=== PATIENT | female | born 1980 | race Two or more races ===

== ENCOUNTER → 2019-04-06 | Outpatient (CLI) | payer OTHER ==
[~2019-04-06] VITALS: Ht 162.6 cm; Wt 97.5 kg
[~2019-04-06] MED LIST: SINCALIDE 1.95 MCG in IV NORMAL SALINE 50ML 30 ML IV ONE
--- NOTE | 2019-04-06 13:19 | RAD ---
EXAM: Abdomen sonogram. HISTORY: Pain. TECHNIQUE: Sonographic imaging of the abdomen was performed. COMPARISON: None. FINDINGS: The liver is normal in size. No focal hepatic lesion is seen. There is cholelithiasis. There are no secondary findings to suggest cholecystitis. The common bile duct is normal in caliber. The right kidney and inferior vena cava are unremarkable. The pancreas is partially obscured due to bowel gas. IMPRESSION: 1. Cholelithiasis. 2. Partially obscured pancreas due to bowel gas. Electronically signed by: Jerri Castillo MD (04/06/2019 1:16 PM) [facility]
--- NOTE | 2019-04-06 14:27 | RAD ---
EXAM: Nuclear hepatobiliary scan. HISTORY: Right upper quadrant pain. TECHNIQUE: Following intravenous administration of 5.5 mCi Tc 99m Choletec, anterior images of the abdomen were obtained at five minute intervals through one hour. Subsequently, 1.95 mcg CCK was administered and additional images to assess gallbladder ejection fraction were obtained. FINDINGS: There is prompt radiotracer uptake by the liver. No focal defect is seen. There is normal excretion into the biliary tree. The gallbladder is visualized within 10 minutes and there is free flow into the duodenum. The gallbladder ejection fraction is 78%. IMPRESSION: High gallbladder ejection fraction of 78%. This can be seen with biliary hyperkinesia. Electronically signed by: Jerri Castillo MD (04/06/2019 2:24 PM) [facility]
== END | disposition home or self-care (01) ==
LOC: US 11:34
PROVIDERS: ATTEND Obstetrics & Gynecology
DX: K80.20 Calculus of gallbladder without cholecystitis without obstruction (principal); K80.80 Other cholelithiasis without obstruction; F90.9 Attention-deficit hyperactivity disorder, unspecified type
CPT/HCPCS: 76705; 78227; A9537; J2805

== ENCOUNTER → 2019-04-09 | Outpatient (CLI) | payer OTHER ==
[~2019-04-09] MED LIST changes: +HYDR-2765 PO; +IOHEXOL 240 MG/ML 50ML VIAL. PO ONE; +IOHEXOL 300 MG/ML 100ML VIAL. IV ONE; -SINCALIDE 1.95 MCG in IV NORMAL SALINE 50ML 30 ML IV ONE
--- NOTE | 2019-04-09 11:53 | RAD ---
Examination: CT ABDOMEN W/CONTRAST History: Right upper quadrant mass. Pain. Comparison/Correlation: None Findings: Axial images of the abdomen were obtained following IV contrast. Sagittal and coronal reformatted images were provided. Oral contrast was administered. Visualized lung bases are clear. Small sliding hiatal hernia is present. Liver, spleen, pancreas, and adrenal glands are normal. Gallbladder is unremarkable. There is no evidence of obstruction involving visualized bowel. No enlarged abdominal lymph nodes. Very minimal edema is noted superficial to the liver at the gallbladder fossa level. Edema superficial to the right upper abdominal wall muscular fascia is noted. Slightly dense collection which is ill-defined is suggested on axial images 43 through 39 measuring 4 cm transverse by 1.1 cm in longitudinal by 1.4 cm longitudinal. This is within the region of edema of the deep subcutaneous fat superficial to the muscular fascia. Edema between right ventricle and abdominal wall musculature is also seen. Suture material is noted anterior to the stomach. Bony structures are grossly unremarkable. Impression: Small sliding hiatal hernia. Involving the right upper quadrant and right flank abdominal wall. There is an intermediate density ill-defined structure which may represent hematoma, other complex collection, or possibly soft tissue mass at the right upper abdomen anteriorly within the deep subcutaneous fat. Minimal ascites superficial to the right hepatic lobe of the gallbladder fossa level is present. Correlate for underlying trauma or inflammatory process. PQRS Compliance Statement: One or more of the following individualized dose reduction techniques were utilized for this examination: 1. Automated exposure control 2. Adjustment of the mA and/or kV according to patient size 3. Use of iterative reconstruction technique Electronically signed by: Juan Armas MD (04/09/2019 11:50 AM) [facility]
== END | disposition home or self-care (01) ==
LOC: CT 09:22
PROVIDERS: ATTEND Specialist
DX: K44.9 Diaphragmatic hernia without obstruction or gangrene (principal); R19.01 Right upper quadrant abdominal swelling, mass and lump; K76.89 Other specified diseases of liver
CPT/HCPCS: 74160; Q9966; Q9967

== ENCOUNTER 2019-04-13 09:46 | Day surgery (SDC) | payer OTHER ==
[~2019-04-13] VITALS: Ht 162.6 cm; Wt 95.3 kg
[~2019-04-13 09:46] MED LIST changes: +BUPIVACAINE-EPI 0.25%-1:200000 MPF 30 ML VIAL. INJ ONE; +BUPIVACAINE-EPI 0.5%-1:200000 MPF 30 ML VIAL. INJ ONE; -HYDR-2765 PO; +HYDROmorphone 2 MG/ML VIAL IV PRN; -IOHEXOL 240 MG/ML 50ML VIAL. PO ONE; -IOHEXOL 300 MG/ML 100ML VIAL. IV ONE; +IV RINGERS,LACTATED 1000ML 1,000 ML IV SCH; +LIDOCAINE 1% PF 2 ML VIAL. ID PRN; +MORPHINE SULFATE 2 MG/ML VIAL. IV PRN; +ONDANSETRON PF 4 MG/2 ML VIAL. IV PRN; +PROCHLORPERAZINE 10 MG/2 ML VIAL. IV PRN; +fentaNYL PF VIAL 100 MCG/2 ML VIAL IV PRN
[2019-04-13] MEDS ORDERED: SCOPOLAMINE 1.5MG PATCH. TD ONE (10:15)
[2019-04-13 10:19] LABS: BILIRUBIN,URINE NEGATIVE (NEG); CLARITY,URINE CLEAR; COLOR,URINE YELLOW; NITRITE,URINE NEGATIVE (NEG); PH,URINE 5.5; PROTEIN,URINE NEGATIVE (NEG-TRACE); UROBILINOGEN,URINE 0.2 mg/dL (0.2 mg/dL)
--- NOTE | 2019-04-13 10:28 | HP ---
ADMIT DATE: 04/13/2019 HISTORY OF PRESENT ILLNESS: The patient comes to me with pain in the right upper quadrant for about 3-4 months. She also had a mass there, which has gone away now. She stated to have indigestion and other problems associated with eating and I do not know that she vomited, but was nauseated a lot. The main problem, however, was pain in her right upper quadrant and right abdomen. PAST MEDICAL HISTORY: Shows normal childhood diseases. She does not take medicine for any disease. ALLERGIES: Has no allergies. PAST SURGICAL HISTORY: She has had surgery and that she has had a laparoscopic banding in and also had it removed, and this was done laparoscopically. FAMILY HISTORY: Shows that she had a sister I think that had gallstones, but no other pertinent history of family disease. SOCIAL HISTORY: Shows that she does not smoke or use illicit drugs. She does have one son who is 2 years old and daughter 13. PHYSICAL EXAMINATION: GENERAL: Shows an alert female in no acute distress. HEAD, EARS, EYES, NOSE AND THROAT: Grossly normal. CHEST: Clear bilaterally to auscultation. HEART: Had no murmurs, heaves, friction rubs or thrills and also had regular rate of 70 beats per minute. ABDOMEN: Soft, no organomegaly was noted. There was no tenderness, rebound or guarding, but she did have an ill-defined mass appeared to be an abdominal wall in the right upper quadrant. I am not certain that this was gallbladder as it felt too superficial. PELVIS: The pelvic was not done. No other abnormalities were noted. EXTREMITIES: Unremarkable. IMPRESSION: Cholelithiasis per a recent sonogram and she also had a CT scan. PLAN: To do a cholecystectomy. She understands laparoscopic and if that cannot be done that we will do open. CARINA CARSON MD DR: LAN/janusz JOB#: [id number] / [id number] JOEL
[2019-04-13 10:36] LABS: BASO # 0.1 x10^3/uL (0.0-0.2); BASO % 1 % (0-3); EOS # 0.2 x10^3/uL (0.0-0.7); EOS % 3 % (0-3); HEMATOCRIT 36.4 % (36.0-47.0); HEMOGLOBIN 12.6 g/dL (12.0-15.5); LYMPH # 2.1 x10^3/uL (1.0-4.8); LYMPH % 25 % (24-48); MEAN CORPUSCULAR HEMOGLOBIN 28 pg (25-35); MEAN CORPUSCULAR HGB CONC 35 g/dL (31-37); MEAN CORPUSCULAR VOLUME 81 fL (79-100); MONO # 0.5 x10^3/uL (0.0-1.1); MONO % 5 % (0-9); NEUT # 5.6 x10^3/uL (1.8-7.7); NEUT % 66 % (31-73); PLATELET COUNT 281 x10^3/uL (140-400); RED BLOOD COUNT 4.53 x10^6/uL (3.50-5.40); RED CELL DISTRIBUTION WIDTH 14.2 % (11.5-14.5); WHITE BLOOD COUNT 8.5 x10^3/uL (4.0-11.0)
[2019-04-13 10:50] LABS: PROTHROMBIN TIME PATIENT 12.2 SEC (11.7-14.0)
[2019-04-13] MEDS ORDERED: ROCURONIUM 50 MG/5 ML VIAL. ONE ×2 (10:51→12:56)
[2019-04-13] MEDS ORDERED: LIDOCAINE 2% PF 5 ML VIAL. ONE (10:52)
[2019-04-13] MEDS ORDERED: ONDANSETRON PF 4 MG/2 ML VIAL. ONE ×2 (10:52→15:49)
[2019-04-13] MEDS ORDERED: PROPOFOL 20 ML IV ONE ×2 (10:52→15:13)
[2019-04-13] MEDS ORDERED: fentaNYL PF VIAL 100 MCG/2 ML VIAL ONE ×2 (10:52→12:56)
[2019-04-13] MEDS ORDERED: MIDAZOLAM HCL/PF 2 MG/2 ML VIAL. ONE (10:52)
[2019-04-13] MEDS ORDERED: DEXAMETHASONE SOD PHOS 4 MG/ML VIAL ONE (10:52)
[2019-04-13] MEDS ORDERED: GLYCOPYRROLATE 1 MG/5 ML VIAL. ONE (10:52)
[2019-04-13] MEDS ORDERED: KETOROLAC 30 MG/ML VIAL. ONE (10:52)
[2019-04-13] MEDS ORDERED: NEOSTIGMINE METHYLSULFATE 5 MG/5 ML SYRINGE. ONE (10:52)
[2019-04-13 11:07] LABS: SQUAMOUS EPITHELIAL CELL,UR MANY /LPF
[2019-04-13 11:08] LABS: BACTERIA,URINE MANY /HPF (0-FEW); RBC,URINE 0 /HPF (0-2); WBC,URINE >40 /HPF (0-4)
[2019-04-13 11:21] LABS: CALCIUM 9.2 mg/dL (8.5-10.1); CREATININE 0.8 mg/dL (0.6-1.0); GFR 80.3; POTASSIUM 4.1 mmol/L (3.5-5.1)
[2019-04-13 11:27] LABS: ALBUMIN 3.6 g/dL (3.4-5.0); TOTAL BILIRUBIN 0.5 mg/dL (0.2-1.0); TOTAL PROTEIN 7.2 g/dL (6.4-8.2)
[2019-04-13] MEDS ORDERED: IOHEXOL 300 MG/ML 50 ML VIAL. ONE (11:33)
--- NOTE | 2019-04-13 11:45 | PDOC ---
SURGICAL PROGRESS NOTE Subjective No change in dictated history and physical. Vital Signs Vital Signs Date Time Temp Pulse Resp B/P (MAP) Pulse Ox O2 Delivery O2 Flow Rate FiO2 04/13/19 10:36 98.3 81 18 133/63 98 Room Air 98.3 Labs Laboratory Tests Test 04/13/19 10:00 04/13/19 10:03 04/13/19 10:30 Urine Collection Type Unknown Urine Color Yellow Urine Clarity Clear Urine pH 5.5 Urine Specific [place] 1.025 Urine Protein Negative mg/dL (NEG-TRACE) Urine Glucose (UA) Negative mg/dL (NEG) Urine Ketones (Stick) Negative mg/dL (NEG) Urine Blood Small (NEG) Urine Nitrite Negative (NEG) Urine Bilirubin Negative (NEG) Urine Urobilinogen Dipstick 0.2 mg/dL (0.2 mg/dL) Urine Leukocyte Esterase Moderate (NEG) Urine RBC 0 /HPF (0-2) Urine WBC >40 /HPF (0-4) Urine Squamous Epithelial Cells Many /LPF Urine Bacteria Many /HPF (0-FEW) Urine Mucus Mod /LPF Bedside Urine HCG, Qualitative Hcg negative (Negative) White Blood Count 8.5 x10^3/uL (4.0-11.0) Red Blood Count 4.53 x10^6/uL (3.50-5.40) Hemoglobin 12.6 g/dL (12.0-15.5) Hematocrit 36.4 % (36.0-47.0) Mean Corpuscular Volume 81 fL (79-100) Mean Corpuscular Hemoglobin 28 pg (25-35) Mean Corpuscular Hemoglobin Concent 35 g/dL (31-37) Red Cell Distribution Width 14.2 % (11.5-14.5) Platelet Count 281 x10^3/uL (140-400) Neutrophils (%) (Auto) 66 % (31-73) Lymphocytes (%) (Auto) 25 % (24-48) Monocytes (%) (Auto) 5 % (0-9) Eosinophils (%) (Auto) 3 % (0-3) Basophils (%) (Auto) 1 % (0-3) Neutrophils # (Auto) 5.6 x10^3/uL (1.8-7.7) Lymphocytes # (Auto) 2.1 x10^3/uL (1.0-4.8) Monocytes # (Auto) 0.5 x10^3/uL (0.0-1.1) Eosinophils # (Auto) 0.2 x10^3/uL (0.0-0.7) Basophils # (Auto) 0.1 x10^3/uL (0.0-0.2) Prothrombin Time 12.2 SEC (11.7-14.0) Prothromb Time International Ratio 0.9 (0.8-1.1) Sodium Level 142 mmol/L (136-145) Potassium Level 4.1 mmol/L (3.5-5.1) Chloride Level 106 mmol/L (98-107) Carbon Dioxide Level 26 mmol/L (21-32) Anion Gap 10 (6-14) Blood Urea Nitrogen 10 mg/dL (7-20) Creatinine 0.8 mg/dL (0.6-1.0) Estimated GFR (Cockcroft-Gault) 80.3 BUN/Creatinine Ratio 13 (6-20) Glucose Level 107 mg/dL (70-99) Calcium Level 9.2 mg/dL (8.5-10.1) Total Bilirubin 0.5 mg/dL (0.2-1.0) Aspartate Amino Transf (AST/SGOT) 20 U/L (15-37) Alanine Aminotransferase (ALT/SGPT) 30 U/L (14-59) Alkaline Phosphatase 73 U/L (46-116) Total Protein 7.2 g/dL (6.4-8.2) Albumin 3.6 g/dL (3.4-5.0) Albumin/Globulin Ratio 1.0 (1.0-1.7) Amylase Level 49 U/L (25-115) Laboratory Tests Test 04/13/19 10:00 04/13/19 10:03 04/13/19 10:30 Urine Collection Type Unknown Urine Color Yellow Urine Clarity Clear Urine pH 5.5 Urine Specific [place] 1.025 Urine Protein Negative mg/dL (NEG-TRACE) Urine Glucose (UA) Negative mg/dL (NEG) Urine Ketones (Stick) Negative mg/dL (NEG) Urine Blood Small (NEG) Urine Nitrite Negative (NEG) Urine Bilirubin Negative (NEG) Urine Urobilinogen Dipstick 0.2 mg/dL (0.2 mg/dL) Urine Leukocyte Esterase Moderate (NEG) Urine RBC 0 /HPF (0-2) Urine WBC >40 /HPF (0-4) Urine Squamous Epithelial Cells Many /LPF Urine Bacteria Many /HPF (0-FEW) Urine Mucus Mod /LPF Bedside Urine HCG, Qualitative Hcg negative (Negative) White Blood Count 8.5 x10^3/uL (4.0-11.0) Red Blood Count 4.53 x10^6/uL (3.50-5.40) Hemoglobin 12.6 g/dL (12.0-15.5) Hematocrit 36.4 % (36.0-47.0) Mean Corpuscular Volume 81 fL (79-100) Mean Corpuscular Hemoglobin 28 pg (25-35) Mean Corpuscular Hemoglobin Concent 35 g/dL (31-37) Red Cell Distribution Width 14.2 % (11.5-14.5) Platelet Count 281 x10^3/uL (140-400) Neutrophils (%) (Auto) 66 % (31-73) Lymphocytes (%) (Auto) 25 % (24-48) Monocytes (%) (Auto) 5 % (0-9) Eosinophils (%) (Auto) 3 % (0-3) Basophils (%) (Auto) 1 % (0-3) Neutrophils # (Auto) 5.6 x10^3/uL (1.8-7.7) Lymphocytes # (Auto) 2.1 x10^3/uL (1.0-4.8) Monocytes # (Auto) 0.5 x10^3/uL (0.0-1.1) Eosinophils # (Auto) 0.2 x10^3/uL (0.0-0.7) Basophils # (Auto) 0.1 x10^3/uL (0.0-0.2) Prothrombin Time 12.2 SEC (11.7-14.0) Prothromb Time International Ratio 0.9 (0.8-1.1) Sodium Level 142 mmol/L (136-145) Potassium Level 4.1 mmol/L (3.5-5.1) Chloride Level 106 mmol/L (98-107) Carbon Dioxide Level 26 mmol/L (21-32) Anion Gap 10 (6-14) Blood Urea Nitrogen 10 mg/dL (7-20) Creatinine 0.8 mg/dL (0.6-1.0) Estimated GFR (Cockcroft-Gault) 80.3 BUN/Creatinine Ratio 13 (6-20) Glucose Level 107 mg/dL (70-99) Calcium Level 9.2 mg/dL (8.5-10.1) Total Bilirubin 0.5 mg/dL (0.2-1.0) Aspartate Amino Transf (AST/SGOT) 20 U/L (15-37) Alanine Aminotransferase (ALT/SGPT) 30 U/L (14-59) Alkaline Phosphatase 73 U/L (46-116) Total Protein 7.2 g/dL (6.4-8.2) Albumin 3.6 g/dL (3.4-5.0) Albumin/Globulin Ratio 1.0 (1.0-1.7) Amylase Level 49 U/L (25-115) CARINA CARSON MD Apr 13, 2019 11:45
--- NOTE | 2019-04-13 11:51 | PDOC ---
SURGICAL PROGRESS NOTE Subjective OP Note: Surgeon.............................................Duarte Pre-Op diagnosis................................chronic cholecystitis and cholelithiasis t-Op diagnosis....................................same with adneshions Anesthesia.........................................General Procedure..........................................Cholecystectomy with cholagiogram and lap enterolysis Drains................................................None Fluids.................................................See anesthesia sheet Blood loss..........................................25cc Condition............................................Satisfactory Vital Signs Vital Signs Date Time Temp Pulse Resp B/P (MAP) Pulse Ox O2 Delivery O2 Flow Rate FiO2 04/13/19 10:36 98.3 81 18 133/63 98 Room Air 98.3 Labs Laboratory Tests Test 04/13/19 10:00 04/13/19 10:03 04/13/19 10:30 Urine Collection Type Unknown Urine Color Yellow Urine Clarity Clear Urine pH 5.5 Urine Specific [place] 1.025 Urine Protein Negative mg/dL (NEG-TRACE) Urine Glucose (UA) Negative mg/dL (NEG) Urine Ketones (Stick) Negative mg/dL (NEG) Urine Blood Small (NEG) Urine Nitrite Negative (NEG) Urine Bilirubin Negative (NEG) Urine Urobilinogen Dipstick 0.2 mg/dL (0.2 mg/dL) Urine Leukocyte Esterase Moderate (NEG) Urine RBC 0 /HPF (0-2) Urine WBC >40 /HPF (0-4) Urine Squamous Epithelial Cells Many /LPF Urine Bacteria Many /HPF (0-FEW) Urine Mucus Mod /LPF Bedside Urine HCG, Qualitative Hcg negative (Negative) White Blood Count 8.5 x10^3/uL (4.0-11.0) Red Blood Count 4.53 x10^6/uL (3.50-5.40) Hemoglobin 12.6 g/dL (12.0-15.5) Hematocrit 36.4 % (36.0-47.0) Mean Corpuscular Volume 81 fL (79-100) Mean Corpuscular Hemoglobin 28 pg (25-35) Mean Corpuscular Hemoglobin Concent 35 g/dL (31-37) Red Cell Distribution Width 14.2 % (11.5-14.5) Platelet Count 281 x10^3/uL (140-400) Neutrophils (%) (Auto) 66 % (31-73) Lymphocytes (%) (Auto) 25 % (24-48) Monocytes (%) (Auto) 5 % (0-9) Eosinophils (%) (Auto) 3 % (0-3) Basophils (%) (Auto) 1 % (0-3) Neutrophils # (Auto) 5.6 x10^3/uL (1.8-7.7) Lymphocytes # (Auto) 2.1 x10^3/uL (1.0-4.8) Monocytes # (Auto) 0.5 x10^3/uL (0.0-1.1) Eosinophils # (Auto) 0.2 x10^3/uL (0.0-0.7) Basophils # (Auto) 0.1 x10^3/uL (0.0-0.2) Prothrombin Time 12.2 SEC (11.7-14.0) Prothromb Time International Ratio 0.9 (0.8-1.1) Sodium Level 142 mmol/L (136-145) Potassium Level 4.1 mmol/L (3.5-5.1) Chloride Level 106 mmol/L (98-107) Carbon Dioxide Level 26 mmol/L (21-32) Anion Gap 10 (6-14) Blood Urea Nitrogen 10 mg/dL (7-20) Creatinine 0.8 mg/dL (0.6-1.0) Estimated GFR (Cockcroft-Gault) 80.3 BUN/Creatinine Ratio 13 (6-20) Glucose Level 107 mg/dL (70-99) Calcium Level 9.2 mg/dL (8.5-10.1) Total Bilirubin 0.5 mg/dL (0.2-1.0) Aspartate Amino Transf (AST/SGOT) 20 U/L (15-37) Alanine Aminotransferase (ALT/SGPT) 30 U/L (14-59) Alkaline Phosphatase 73 U/L (46-116) Total Protein 7.2 g/dL (6.4-8.2) Albumin 3.6 g/dL (3.4-5.0) Albumin/Globulin Ratio 1.0 (1.0-1.7) Amylase Level 49 U/L (25-115) Laboratory Tests Test 04/13/19 10:00 04/13/19 10:03 04/13/19 10:30 Urine Collection Type Unknown Urine Color Yellow Urine Clarity Clear Urine pH 5.5 Urine Specific [place] 1.025 Urine Protein Negative mg/dL (NEG-TRACE) Urine Glucose (UA) Negative mg/dL (NEG) Urine Ketones (Stick) Negative mg/dL (NEG) Urine Blood Small (NEG) Urine Nitrite Negative (NEG) Urine Bilirubin Negative (NEG) Urine Urobilinogen Dipstick 0.2 mg/dL (0.2 mg/dL) Urine Leukocyte Esterase Moderate (NEG) Urine RBC 0 /HPF (0-2) Urine WBC >40 /HPF (0-4) Urine Squamous Epithelial Cells Many /LPF Urine Bacteria Many /HPF (0-FEW) Urine Mucus Mod /LPF Bedside Urine HCG, Qualitative Hcg negative (Negative) White Blood Count 8.5 x10^3/uL (4.0-11.0) Red Blood Count 4.53 x10^6/uL (3.50-5.40) Hemoglobin 12.6 g/dL (12.0-15.5) Hematocrit 36.4 % (36.0-47.0) Mean Corpuscular Volume 81 fL (79-100) Mean Corpuscular Hemoglobin 28 pg (25-35) Mean Corpuscular Hemoglobin Concent 35 g/dL (31-37) Red Cell Distribution Width 14.2 % (11.5-14.5) Platelet Count 281 x10^3/uL (140-400) Neutrophils (%) (Auto) 66 % (31-73) Lymphocytes (%) (Auto) 25 % (24-48) Monocytes (%) (Auto) 5 % (0-9) Eosinophils (%) (Auto) 3 % (0-3) Basophils (%) (Auto) 1 % (0-3) Neutrophils # (Auto) 5.6 x10^3/uL (1.8-7.7) Lymphocytes # (Auto) 2.1 x10^3/uL (1.0-4.8) Monocytes # (Auto) 0.5 x10^3/uL (0.0-1.1) Eosinophils # (Auto) 0.2 x10^3/uL (0.0-0.7) Basophils # (Auto) 0.1 x10^3/uL (0.0-0.2) Prothrombin Time 12.2 SEC (11.7-14.0) Prothromb Time International Ratio 0.9 (0.8-1.1) Sodium Level 142 mmol/L (136-145) Potassium Level 4.1 mmol/L (3.5-5.1) Chloride Level 106 mmol/L (98-107) Carbon Dioxide Level 26 mmol/L (21-32) Anion Gap 10 (6-14) Blood Urea Nitrogen 10 mg/dL (7-20) Creatinine 0.8 mg/dL (0.6-1.0) Estimated GFR (Cockcroft-Gault) 80.3 BUN/Creatinine Ratio 13 (6-20) Glucose Level 107 mg/dL (70-99) Calcium Level 9.2 mg/dL (8.5-10.1) Total Bilirubin 0.5 mg/dL (0.2-1.0) Aspartate Amino Transf (AST/SGOT) 20 U/L (15-37) Alanine Aminotransferase (ALT/SGPT) 30 U/L (14-59) Alkaline Phosphatase 73 U/L (46-116) Total Protein 7.2 g/dL (6.4-8.2) Albumin 3.6 g/dL (3.4-5.0) Albumin/Globulin Ratio 1.0 (1.0-1.7) Amylase Level 49 U/L (25-115) CARINA CARSON MD Apr 13, 2019 11:50
--- NOTE | 2019-04-13 14:51 | RAD ---
Examination: CHOLANGIOGRAM INTRAOPERATIVE History: Cholecystectomy Comparison/Correlation: CT abdomen with contrast 04/09/2019 Findings: Fluoroscopy was utilized for 22 minutes. Total of 8 images were provided. Extravasation of contrast is noted about the cystic duct remnant. Common bile duct is normal. Common hepatic duct is not optimally visualized due to respiratory motion and borderline adequate opacification. No intrahepatic biliary dilatation. No stricture suggested. Impression: Extravasation of contrast about the cystic duct remnant. Cholecystectomy. No evidence of stricture. Common hepatic duct is suboptimally opacified and motion is noted limiting assessment. Electronically signed by: Juan Armas MD (04/13/2019 2:48 PM) [facility]
--- NOTE | 2019-04-13 14:52 | RAD ---
Examination: CHOLANGIOGRAM OR ADD`L SET History: Cholecystectomy Comparison/Correlation: None Findings: 3 cholangiographic images were obtained intraoperatively. Fluoroscopy was utilized for 0.38 minutes. Extravasation of contrast is evident about the cystic duct remnant. Contrast is noted within duodenum. Contrast is noted within the common hepatic duct without definite filling defect identified. No definite stricture or biliary dilatation. Impression: No stricture or suspicious filling defect identified to involve the opacified biliary tree. Electronically signed by: Juan Armas MD (04/13/2019 2:49 PM) [facility]
[2019-04-13] MEDS ORDERED: ceFAZolin SODIUM 1 GM VIAL ONE (15:40)
[2019-04-13] MEDS ORDERED: BUPIVACAINE-EPI 0.5%-1:200000 MPF 30 ML VIAL. INJ ONE (15:45)
--- NOTE | 2019-04-13 16:28 | DISCH ---
DISCHARGE INSTRUCTIONS Condition on Discharge Condition on Discharge: Stable Activity After Discharge Activity Instructions for Disc: Avoid exertion Diet after Discharge Diet after Discharge: Clear Liquid Wound Incision Care Wound/Incision Care: Other, see below Other wound/incision instructi: change dressing prn. Keep clean Follow-Up Follow up with: Follow Up With: Duarte 3 weeks CARINA CARSON MD Apr 13, 2019 16:28
[2019-04-13] MEDS ORDERED: HYDROcodone/APAP 7.5/325MG 1 TAB TABLET PO ONE (16:30)
[2019-04-13] MEDS ORDERED: HYDR-2765 PO (16:37)
[2019-04-13 17:25] VITALS: BP 108/63
--- NOTE | 2019-04-14 02:07 | OP ---
DATE OF SURGERY: SURGEON: Haroon Carson M.D. PREOPERATIVE DIAGNOSES: Chronic cholecystitis and cholelithiasis. POSTOPERATIVE DIAGNOSES: Chronic cholecystitis, cholelithiasis and adhesions to the gallbladder. ANESTHESIA: General. PROCEDURE: Laparoscopic enterolysis with laparoscopic cholecystectomy and intraoperative cholangiogram. TECHNIQUE: Under general anesthesia, the patient was properly prepped and draped in routine fashion. She had had previous upper abdominal incisions for a banding of the esophagus for weight loss and then had this removed. This was done laparoscopically. Because we were not sure where the adhesions might be and there appeared to be no scars at the umbilicus, we made an infraumbilical incision about half inch in length and then carried down through the skin with a 15 blade. We then pulled up on either side with towel clips and passed a Veress needle into the peritoneal cavity. We then put about 3 mL of saline, let it flow by gravity into the peritoneum and then insufflated the peritoneum with CO2 up to 15. We then placed the 11 mm trocar there. We then passed the scope and saw that there appeared to be no damage to the intraabdominal contents and there were no adhesions to the anterior abdominal wall, except for the gallbladder, which went up to the peritoneum just above it, where was a band probably 2 inches and an inch and a half in diameter, which went from the fundus of the gallbladder up to the anterior abdominal wall. We could not do the gallbladder and once we remove this, it did appear to go anywhere. We then proceeded to try to dissect it. It was fairly dense, could not get it quite away and had to slowly peel it away. We could not tell if the gallbladder was adherent to the abdominal wall or this was a band. As such, we went gently going up to the peritoneum taking it off the peritoneum and also using the Harmonic scalpel. We did not enter into the gallbladder during this. The fundus of the gallbladder was then grasped with the right lower quadrant grasper and right lower quadrant and upper abdomen grasper ports were placed using 5 mm ports and atraumatic port placed in the epigastrium just to the right of the falciform ligament. These were all done under direct visualization with no injury to the intra-abdominal contents. The fundus being grasped with the right lower quadrant grasper, this was pushed up toward the patient's right shoulder and the gallbladder was tremendously fatty and we could not tell what was going on. We had to take this away by dissecting it away and then grabbing the fundus of the gallbladder with the right upper quadrant grasper. We then were able to identify the cystic duct, encircled it, went around it completely, . We then inspected the area and decided we would do cholangiogram and as such clipped the cystic duct high on the gallbladder twice. We then made a small rubén in the area closest to the gallbladder and this was in the cystic duct and then passed the catheter in there and clipped it in place. This was quite difficult as the procedure took a lot to take the adhesions down and get the fat away, so we could identify the cystic duct clearly and placing the catheter was also difficult as it would go all the way in the cystic duct. We had to clip it in place. There was some extravasation of the dye, but we were able to get cholangiogram. Having done this, we contacted the radiologist. All appeared well as there were no filling defects in the common duct; it was clearly seen. Dye did go up into the hepatic radicals and also into the duodenum. As such, having no defects and no other abnormalities, we then removed the clip and the catheter and then clipped the cystic duct 3 times with a clamp and then completely divided it. This was up close to the gallbladder. We then identified the cystic artery. There appeared to be only one branch going to the gallbladder and this was encircled and clipped 3 times on the patient's side and once on the gallbladder side. This was divided. We then slowly shelled the gallbladder out of the gallbladder fossa using a Harmonic scalpel making certain not to injure any intra-abdominal contents nor the liver. This was slowly removed. We inspected the hilum of the gallbladder. There were no bile leaks and no bleeding and as such, we amputated the gallbladder from the liver tip. We then placed a 5 mm port in the epigastrium and through the umbilical port, placed the EndoCatch basket. The gallbladder was placed in this. It was closed and then we proceeded to remove the gallbladder. Because of the large stone, we could not remove it and therefore the fascia in the midline was divided about half inch in length, carried down and we then were able to deliver the gallbladder and its contents without any spillage or seepage. The resultant defect was inspected and the fascia was approximated with four #1 Prolene sutures tied. We then inspected the area endoscopically as we inflated the abdomen again and there was no damage to the intraabdominal contents and nothing adherent to the anterior abdominal wall where the sutures had been placed. We then aspirated some of the blood from the lateral portion of the liver, inspected the area. There was no bleeding, bile leaks or other abnormalities and as such, the CO2 was aspirated from the abdomen and also from the area above the liver and below the diaphragm. All CO2 was removed and then trocars were removed. The wounds were then irrigated with saline and then approximated at the umbilical wound by placing 4-0 Vicryl into the deeper structures and closing the skin using a 5-0 subcuticular Vicryl. Subcuticular Vicryl was used to close the other 3 ports also. Sterile Tegaderm dressings were applied and the procedure was terminated. The blood loss was probably 15-20 mL. Fluids given can be obtained from the anesthesia sheet. No drains were used. CONDITION OF THE PATIENT: Satisfactory as she has returned to the recovery room. HAROON CARSON MD DR: LAN/janusz JOB#: [id number] / [id number] JOEL
--- NOTE | 2019-04-17 16:06 | PATHOLOGY ---
[facility] Accession Number: [id number] . 01 Material submitted: . gallbladder - GALLBLADDER AND CONTENTS . 01 Clinical history: . Gallbladder disease . 02 Diagnosis: Gallbladder, cholecystectomy: - Cholelithiasis. - Cholesterolosis. - Chronic and focal acute cholecystitis. LBQ 04/17/2019 1408 Local . 02 Comment: There is no evidence of malignancy. (JPM/db; 04/17/2019) . 02 Electronically signed: . Ayo Saunders MD, Pathologist NPI- [id number] . 01 Gross description: . The specimen is received in formalin, labeled "Best, Hyacinth, gallbladder and content", is intact gallbladder measuring 9.5 cm in length and 3.4 cm in maximum diameter with a currie-green, glistening and smooth serosa. At the fundus towards the hepatic aspect there is an attached edematous soft tissue measuring 3.5 x 1.8 cm, this is inked black. The cystic duct is patent. The gallbladder lumen contains dark green-yellow, viscous bile and a roughly oval irregularly surfaced dark brown calculus measuring 2.5 x 2.2 x 1.6 cm. The mucosa is green and with cholesterolosis. The wall is 0.1 cm in average thickness. Representatively submitted in A1-A3 (A1 = gallbladder and A2-A3 = soft tissue attached to fundus). (SWS; 04/16/2019) . The calculus was returned to [facility] pathology as requested by Damaris Mcfarlane on 04/17/2019 by Courtney Rueda. (CAA; 04/17/2019) [facility] 04/17/2019 1305 Local . 02 Pathologist provided ICD-10: K80.12, K82.4 . 02 CPT . 766363 Specimen Comment: A courtesy copy of this report has been sent to Specimen Comment: [phone], . Specimen Comment: Report sent to / DR RODRIGUES Performed at: 01 [facility] [address] [facility] [address], [place] [id number] MD Steven Benitez MD Phone: [phone] Performed at: 02 [facility] [address] [place], [place] [id number] MD Ayo Saunders MD Phone: [phone]
== END 2019-04-13 18:25 | disposition home or self-care (01) ==
LOC: SURG 09:46
PROVIDERS: ATTEND Specialist
DX: K80.10 Calculus of gallbladder with chronic cholecystitis without obstruction (principal); Z79.899 Other long term (current) drug therapy; Z79.01 Long term (current) use of anticoagulants
CPT/HCPCS: 36415; 47563; 74300; 74301; 80053; 81001; 81025; 82150; 85025; 85610; 87086; A7015; J0690; J0780; J1100; J1885; J2001; J2250; J2405; J2704; J2710; J3010; J3490; J7030; J7120; Q9967; 87186

== ENCOUNTER → 2019-04-18 | Outpatient (CLI) | payer OTHER ==
[2019-04-13 17:25] VITALS: BP 108/63
[~2019-04-18] MED LIST changes: -BUPIVACAINE-EPI 0.25%-1:200000 MPF 30 ML VIAL. INJ ONE; -BUPIVACAINE-EPI 0.5%-1:200000 MPF 30 ML VIAL. INJ ONE; +HYDR-2765 PO; -HYDROmorphone 2 MG/ML VIAL IV PRN; -IV RINGERS,LACTATED 1000ML 1,000 ML IV SCH; -LIDOCAINE 1% PF 2 ML VIAL. ID PRN; -MORPHINE SULFATE 2 MG/ML VIAL. IV PRN; -ONDANSETRON PF 4 MG/2 ML VIAL. IV PRN; -PROCHLORPERAZINE 10 MG/2 ML VIAL. IV PRN; -fentaNYL PF VIAL 100 MCG/2 ML VIAL IV PRN
[2019-04-18 15:21] LABS: ALBUMIN 3.7 g/dL (3.4-5.0); ALBUMIN/GLOBULIN RATIO 0.9 (1.0-1.7); CALCIUM 9.1 mg/dL (8.5-10.1); CREATININE 0.9 mg/dL (0.6-1.0); GFR 70.1; POTASSIUM 3.8 mmol/L (3.5-5.1); TOTAL BILIRUBIN 0.5 mg/dL (0.2-1.0); TOTAL PROTEIN 7.9 g/dL (6.4-8.2)
== END | disposition home or self-care (01) ==
LOC: LAB 14:36
PROVIDERS: ATTEND Specialist
DX: K80.80 Other cholelithiasis without obstruction (principal)
CPT/HCPCS: 36415; 80053